=== PATIENT | female | born 1990 | race African-American/Black ===

== ENCOUNTER 2016-05-12 15:27 | Emergency (ER) | payer OTHER ==
[2016-05-12 15:31] VITALS: BP 118/77; PULSE 90; TEMP 97.7; BMI 19.8
[2016-05-12] MEDS ORDERED: KETOROLAC TROMETHAMINE 60 MG/2 ML VIAL IM ONE (16:03)
[2016-05-12] MEDS ORDERED: CYCLOBENZAPRINE HCL 10 MG TABLET (FP) PO ONE (16:03)
[2016-05-12] MEDS ORDERED: KETOROLAC TROMETHAMINE 60 MG/2 ML VIAL ONE ×2 (16:05→16:17)
[2016-05-12] MEDS ORDERED: diazePAM 5 MG TABLET ONE (16:05)
--- NOTE | 2016-05-12 16:17 | PDOC ---
History of Present Illness - General Chief Complaint: Head/Neck problem Stated Complaint: NECK PAIN Time Seen by Provider: 05/12/16 15:43 History Source: Patient - History of Present Illness Associated Symptoms: denies: denies symptoms, fever/chills, nausea/vomiting Past History - Past Medical History Allergies/Adverse Reactions: Allergies Allergy/AdvReac Type Severity Reaction Status Date / Time No Known Allergies Allergy Verified 05/12/16 15:29 Home Medications: Ambulatory Orders Diazepam [Valium] 2 mg PO TID #6 tablet MDD 6mg 05/12/16 Ibuprofen [Motrin -] 600 mg PO QID #28 tablet 05/12/16 Anemia: Yes - Psycho/Social/Smoking Cessation Hx Anxiety: No Suicidal Ideation: No Smoking Status: No Smoking History: Never smoked Number of Cigarettes Smoked Daily: 0 Hx Alcohol Use: No Drug/Substance Use Hx: No Substance Use Type: None Review of Systems - Review of Systems Constitutional: No: Chills, Fever Musculoskeletal: Yes: Neck Pain. No: Back Pain Neurological: No: Headache, Numbness, Weakness *Physical Exam - Vital Signs Last Vital Signs Temp Pulse Resp BP Pulse Ox 97.7 F 90 18 118/77 99 05/12/16 15:29 05/12/16 15:29 05/12/16 15:29 05/12/16 15:29 05/12/16 15:29 - Physical Exam General Appearance: Yes: Appropriately Dressed. No: Apparent Distress HEENT: positive: Normal Voice Neck: positive: Other (tender to midline, pain worse w/ ROM of neck, UE strength intact b/l). negative: Lymphadenopathy (R), Lymphadenopathy (L) Integumentary: positive: Dry, Warm Neurologic: positive: Fully Oriented, Alert, Normal Mood/Affect Medical Decision Making - Medical Decision Making 05/12/16 16:17 25 yo F, no sig hx, p/w neck pain. Pt states she awoke with midline neck pain yesterday am, unable to describe, constant and worse w/ ROM of neck. Taking OTC meds w/ no relief. No BURRIS, dizziness, uri sxs, n/v/f/c. Denies sensory changes or UE weakness See exam Neck pain M/l MSK No red flags at this time -pain control in ED -reassess 05/12/16 16:31 05/12/16 16:54 Pt reports some relief w/ medications. Discharged in stable condition with prescriptions 05/12/16 17:12 *DC/Admit/Observation/Transfer Diagnosis at time of Disposition: Neck strain Qualifiers: Encounter type: initial encounter Qualified Code(s): S16.1XXA - Strain of muscle, fascia and tendon at neck level, initial encounter - Discharge Dispostion Disposition: HOME Condition at time of disposition: Improved - Prescriptions Prescriptions: Ibuprofen [Motrin -] 600 mg PO QID #28 tablet Diazepam [Valium] 2 mg PO TID #6 tablet MDD 6mg - Referrals Referrals: Rd Campos MD [Primary Care Provider] - - Patient Instructions Printed Discharge Instructions: DI for Neck Sprain Additional Instructions: Take medications as directed
[2016-05-12] MEDS ORDERED: CYCLOBENZAPRINE HCL 10 MG TABLET (FP) ONE (16:18)
== END 2016-05-12 17:11 | disposition home or self-care (01) ==
LOC: JERFT 15:27
PROC: 3E0233Z Introduction of Anti-inflammatory into Muscle, Percutaneous Approach (ICD-10-PCS; principal; 2016-05-12)
DX: S16.1XXA Strain of muscle, fascia and tendon at neck level, initial encounter (principal); X50.1XXA Overexertion from prolonged static or awkward postures, initial encounter; X50.9XXA Other and unspecified overexertion or strenuous movements or postures, initial encounter; Y93.89 Activity, other specified; Y92.032 Bedroom in apartment as the place of occurrence of the external cause
CPT/HCPCS: 84703; 96372; 99281-25

== ENCOUNTER 2017-10-12 01:26 | Emergency (ER) | payer OTHER ==
--- NOTE | 2017-10-12 01:44 | PDOC ---
History of Present Illness - General Stated Complaint: PAIN,LT ANKLE Time Seen by Provider: 10/12/17 01:30 History Source: Patient Exam Limitations: No Limitations - History of Present Illness Initial Comments: 10/12/17 01:39 Best Contact: PCP: N/A Pmhx: N/A Pshx: N/A Allergies:N/A FH:0 Social Hx: Cigarettes/ 0 Alcohol/ 0 Drugs/0 LMP:10/06/2017 27-year-old female presents to the emergency department complaining of left lateral ankle discomfort. Patient states while she was sitting, she stood up abruptly causing her to "twitch" her left ankle 5 hours ago. Pain is described as 3/10 dull nonradiating intermittent discomfort which is exacerbated on weight -bear and alleviated at rest. Patient denies knee/foot pain. Patient denies trauma/fall. Patient denies any other complaints. Past History - Past Medical History Allergies/Adverse Reactions: Allergies Allergy/AdvReac Type Severity Reaction Status Date / Time No Known Allergies Allergy Verified 05/12/16 15:29 Home Medications: Ambulatory Orders Diazepam [Valium] 2 mg PO TID #6 tablet MDD 6mg 05/12/16 Ibuprofen [Motrin -] 600 mg PO QID #28 tablet 05/12/16 Anemia: Yes - Suicide/Smoking/Psychosocial Hx Smoking Status: No Smoking History: Never smoked Number of Cigarettes Smoked Daily: 0 Hx Alcohol Use: No Drug/Substance Use Hx: No Substance Use Type: None Review of Systems - Review of Systems Able to Perform ROS?: Yes Comments:: 10/12/17 01:42 CONSTITUTIONAL: Absent: fever, chills, diaphoresis, generalized weakness, malaise, loss of appetite MUSCULOSKELETAL: +Left lat ankle pain Absent: myalgia, arthralgia, joint swelling SKIN: Absent: rash, itching, pallor Is the patient limited [place] proficient: No *Physical Exam - Physical Exam Comments: 10/12/17 01:43 GENERAL: Well developed, well nourished. Awake and alert. No acute distress. MUSCULOSKELETAL Left ankle: No obvious deformity/no swelling or pain to the lateral malleolus. Achilles intact Left foot: No pain to the base of the fifth metatarsal, 2+ pedal pulse, no obvious deformity Left knee: No pain on palpation, full range of motion, negative pain to proximal fibula Normal range of motion at all joints. No bony deformities or tenderness. No CVA tenderness. EXTREMITIES: No cyanosis. No clubbing. No edema. No calf tenderness. SKIN: Warm and dry. Normal capillary refill. No rashes. No jaundice. ED Treatment Course - RADIOLOGY Radiology Studies Ordered: Category Date Time Status ANKLE-LEFT [RAD] Stat Radiology 10/12/17 01:31 Ordered Radiograph Interpretation: 10/12/17 01:44 Xray left ankle neg *DC/Admit/Observation/Transfer Diagnosis at time of Disposition: Ankle sprain Qualifiers: Encounter type: initial encounter Involved ligament of ankle: other ligament Laterality: left Qualified Code(s): S93.492A - Sprain of other ligament of left ankle, initial encounter - Discharge Dispostion Condition at time of disposition: Stable Decision to Admit order: No - Referrals Referrals: Esvin Arias MD [Staff Physician] - - Patient Instructions Printed Discharge Instructions: DI for Ankle Sprain Additional Instructions: Ice; 20 mins on alternating with 20 mins off for 48 hours while awake. Rest Elevate Follow up with your orthopedic surgeon or the one listed on the discharge form. Return to the ER for severe/persistent/worsening symptoms, extremity numbness/ tingling sensation. - Post Discharge Activity
[2017-10-12 02:00] VITALS: BP 130/87; PULSE 85; TEMP 98.1; BMI 22.6
== END 2017-10-12 02:36 | disposition home or self-care (01) ==
LOC: JER 01:26
DX: S93.492A Sprain of other ligament of left ankle, initial encounter (principal); X50.1XXA Overexertion from prolonged static or awkward postures, initial encounter; Y93.89 Activity, other specified; Y92.89 Other specified places as the place of occurrence of the external cause; Y99.8 Other external cause status
CPT/HCPCS: 73610-TC-LT-FY; 99283-25

== ENCOUNTER 2018-07-12 23:02 | Emergency (ER) | payer OTHER ==
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
[2018-07-12 23:42] VITALS: BP 113/76; PULSE 90; TEMP 98.9; BMI 44.3
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
== END 2018-07-13 01:50 | disposition home or self-care (01) ==
LOC: JER 23:02
PROC: BY49ZZZ Ultrasonography of First Trimester, Single Fetus (ICD-10-PCS; principal; 2018-07-12)
DX: O26.891 Other specified pregnancy related conditions, first trimester (principal); R10.9 Unspecified abdominal pain; W50.0XXA Accidental hit or strike by another person, initial encounter; Y93.82 Activity, spectator at an event; Y92.89 Other specified places as the place of occurrence of the external cause; Y99.8 Other external cause status; Z3A.13 13 weeks gestation of pregnancy
CPT/HCPCS: 36415; 76801-TC; 76815-TC; 84702; 86850; 86900; 86901; 99282-25

== ENCOUNTER 2019-01-15 20:40 | Inpatient (IN) | payer OTHER ==
[2019-01-15] MEDS: DEXTROSE 5%-LACTATED RINGERS 1,000 ML IV SCH (21:00)
[2019-01-15 22:26] LABS: BASO % 0.7 % (0-2.0); EOS % 0.4 % (0-4.5); HEMATOCRIT 30.4 % (32.4-45.2); HEMOGLOBIN 9.6 GM/dL (10.7-15.3); LYMPH % 15.2 % (8-40); MCH 23.9 pg (25.7-33.7); MCHC 31.7 g/dl (32.0-36.0); MEAN CELL VOLUME 75.4 fl (80-96); MEAN PLT VOLUME 8.8 fl (7.5-11.1); MONO % 8.9 % (3.8-10.2); NEUT % 74.8 % (42.8-82.8); PLATELET COUNT 165 K/MM3 (134-434); RBC 4.03 M/mm3 (3.60-5.2); RDW 15.4 % (11.6-15.6); WHITE BLOOD COUNT 8.5 K/mm3 (4.0-10.0)
[2019-01-15 22:48] LABS: INR 0.92 (0.83-1.09); PROTHROMBIN TIME (PATIENT) 10.9 SEC (9.7-13.0)
[2019-01-15 22:53] LABS: BLOOD UREA NITROGEN 9.3 mg/dL (7-18); CALCIUM 8.8 mg/dL (8.5-10.1); CREATININE 0.7 mg/dL (0.55-1.3); POTASSIUM 4.2 mmol/L (3.5-5.1)
[2019-01-15 23:00] VITALS: BMI 20.7
[2019-01-16] MEDS ORDERED: BUTORPHANOL TARTRATE 1 MG/ML VIAL ONE ×2 (00:16)
[2019-01-16] MEDS ORDERED: PROMETHAZINE HCL 25 MG/1 ML VIAL ONE (00:17)
[2019-01-16] MEDS ORDERED: AMPICILLIN SODIUM 2 GM VIAL ONE (01:04)
[2019-01-16] MEDS ORDERED: AMPICILLIN - 2 GM in SODIUM CHLORIDE 100 ML IVPB ONE (02:45)
[2019-01-16] MEDS ORDERED: BUTORPHANOL TARTRATE 1 MG/ML VIAL IVPB ONE (02:45)
[2019-01-16] MEDS ORDERED: PROMETHAZINE HCL 25 MG/1 ML VIAL IVPB ONE (02:45)
[2019-01-16] MEDS: AMPICILLIN - 1 GM in SODIUM CHLORIDE 100 ML IVPB SCH ×2 (05:00→09:00)
--- NOTE | 2019-01-16 05:09 | HP ---
Past Medical History - Primary Care Physician PCP:: Nhung Eden - Admission Chief Complaint: Labor History of Present Illness: 28 yo EDc EGA 39 week admitted for induction but was in labor no ROM or bleeding History Source: Patient Limitations to Obtaining History: No Limitations - Past Medical History ...: 1 ...Para: 0 ...LMP: 04/10/18 ... Weeks Gestation by Dates: 40 ...EDC by Dates: 01/15/19 ...EDC by Sono: 01/22/19 - Past Surgical History Past Surgical History: Yes: None Hx Myomectomy: No Hx Transabdominal Cerclage: No - Smoking History Smoking history: Never smoked Have you smoked in the past 12 months: No Aproximately how many cigarettes per day: 0 - Alcohol/Substance Use Hx Alcohol Use: No History of Substance Use: reports: None - Social History History of Recent Travel: No Home Medications - Allergies Allergies/Adverse Reactions: Allergies Allergy/AdvReac Type Severity Reaction Status Date / Time No Known Allergies Allergy Verified 07/12/18 23:11 - Home Medications Home Medications: Ambulatory Orders Prenat 115/Iron Fum/Folic/Dss [ 19 Tablet] 1 each PO DAILY 10/09/18 Ibuprofen [Motrin -] 600 mg PO QID #28 tablet 01/19/19 Review of Systems - Review of Systems Constitutional: reports: No Symptoms Eyes: reports: No Symptoms HENT: reports: No Symptoms Neck: reports: No Symptoms Cardiovascular: reports: No Symptoms Respiratory: reports: No Symptoms Gastrointestinal: reports: No Symptoms Genitourinary: reports: No Symptoms Breasts: reports: No Symptoms Reported Musculoskeletal: reports: No Symptoms Integumentary: reports: No Symptoms Neurological: reports: No Symptoms Endocrine: reports: No Symptoms Hematology/Lymphatic: reports: No Symptoms Psychiatric: reports: No Symptoms Physical Exam - Maternity Vital Signs: Vital Signs Temperature 97.9 F 01/16/19 03:00 Pulse Rate 85 01/16/19 03:00 Respiratory Rate 18 01/16/19 03:00 Blood Pressure 108/57 L 01/16/19 03:00 O2 Sat by Pulse Oximetry (%) Constitutional: Yes: Well Nourished, No Distress Neck: Yes: WNL Breast(s): Yes: WNL - Abdominal Exam/OB Fundal Height: 40 Number of Fetuses: Single Regularity: Regular Category: I Decelerations: None - Vaginal Exam/OB Dilatation (cm): 2 Amniotic Membrane Status: Intact Presentation: Vertex/Position - Physical Exam Psychiatric: Yes: WNL, Alert, Oriented - Labs Lab Results: CBC, BMP 01/15/19 22:15 01/15/19 22:15 Hemorrhage Risk Assessment - Risk Factors Risk Score: 0 Risk Level: Low Risk Problem List - Problems (1) Labor established Problems reviewed: Yes Code(s): [id number] - Assessment/Plan 39 week Labor Cat 1 GBS Plan Admit Stadol Epidural if desires
--- NOTE | 2019-01-16 05:14 | LDN ---
Oxytocin Pre-Use Checklist Date and Time completed: 01/16/19 0514 Physician order on chart: Yes Indication for induction is documented: Yes record on chart: Yes Pelvis is documented by physician to be clinically adequate: Yes Estimated weight within past week (clinical or sono): Less than 4500 grams in a non-diabetic woman Gestational age is documented: Yes Consent signed: Yes Physician with privileges: is aware of the induction, is readily available, is documented in the medical record Status of the cervix is assessed and documented: Yes Presentation is assessed and documented: Yes Assessment completed and includes: A minimum of 30 minutes of monitoring is required prior to start, At least 2 accelerations (15bpm x 15sec) in 30 minutes are present
[2019-01-16] MEDS ORDERED: ELECTROLYTE-148 SOLN 1,000 ML IV SCH (05:15)
[2019-01-16] MEDS ORDERED: OXYTOCIN 30 UNITS in 0.9% NS 30 UNIT/500 ML INFUS.BAG IVPB SCH (05:15)
[2019-01-16] MEDS ORDERED: AMPICILLIN SODIUM 1 GM VIAL ONE (05:18)
--- NOTE | 2019-01-16 05:38 | PN ---
Ante-Partal Exam - Subjective Subjective: Pt sagrario Q3-4 Vital Signs: Vital Signs Temperature 98.0 F 01/16/19 05:00 Pulse Rate 80 01/16/19 05:00 Respiratory Rate 18 01/16/19 05:00 Blood Pressure 117/77 01/16/19 05:00 O2 Sat by Pulse Oximetry (%) Bleeding: No Headache: No Visual changes: No Right upper quadrant pain: No - Contractions Contractions: Yes Regularity: Irregular Intensity: Mild/Mod Monitor Mode: External - Exam during Labor Variability: Moderate Heart Rate Location: [facility] Category: I Monitor Accelerations: Present Monitor Decelerations: None Exam: Vaginal Dilatation (cm): 3 Amniotic Membrane Status: Intact Presentation: Vertex Station: -1 - Intrapartum Hemorrhage Risk Risk Score: 0 Risk Level: Low Risk - Assessment/Plan Assessment/Plan: Labor irregular contracdtions Plan pitocin augmentation
[2019-01-16] MEDS ORDERED: morphine SULFATE/PF 0.5 MG/ML (2cc Syringe - QUVA) ONE (08:22)
[2019-01-16] MEDS ORDERED: CITRIC ACID/SODIUM CITRATE 30 ML UNIT-DOSE CUP PO ONE (08:28)
[2019-01-16] MEDS ORDERED: METHYLERGONOVINE MALEATE 0.2 MG/1 ML AMP IM PRN (08:28)
--- NOTE | 2019-01-16 08:28 | PN ---
Ante-Partal Exam - Subjective Subjective: EFM showing decels with augmentation Vital Signs: Vital Signs Temperature 98.6 F 01/16/19 07:00 Pulse Rate 75 01/16/19 07:00 Respiratory Rate 18 01/16/19 07:00 Blood Pressure 116/77 01/16/19 07:00 O2 Sat by Pulse Oximetry (%) - Exam during Labor Category: II Monitor Decelerations: Variable Exam: Vaginal Dilatation (cm): 2-3 Effacement (%): 90 Amniotic Membrane Status: Intact Presentation: Vertex Station: -1 - Intrapartum Hemorrhage Risk Risk Score: 0 Risk Level: Low Risk - Assessment/Plan Assessment/Plan: intolerace to labor Cat 2 Plan discussed with pt advised CS pt remote from delivery
--- NOTE | 2019-01-16 09:22 | OP ---
Operative Note - Note: Operative Date: 01/16/19 Pre-Operative Diagnosis: intolerance to labor. GBs positive. IUP at 39 week Operation: Low transverse Section Findings: Live Post-Operative Diagnosis: Same as Pre-op Surgeon: Nhung Eden Waiter/Waitress Informal: Xuan Sun Anesthesia: Spinal Estimated Blood Loss (mls): 500 Operative Report Dictated: Yes
[2019-01-16] MEDS: OXYTOCIN 20 UNITS in 0.9% NS 20 UNIT/1,000 ML INFUS.BAG IV SCH (09:30)
--- NOTE | 2019-01-16 09:57 | SURG ---
Surgery Music Education Director Note Music Education Director: Xuan Sun PA-C Date of Service: 01/16/19 Diagnosis: intolerance to labor. GBs positive. IUP at 39 week Procedure: section I was present for the entirety of the operative procedure. For further detail, please refer to operative report. Visit type - Case Type Case Type: Scheduled - Emergency Emergency Visit: No - New patient This patient is new to me today: Yes Date on this admission: 01/16/19
[2019-01-16] MEDS: IBUPROFEN 800 MG/8 ML IJ IVPB PRN (17:35)
[2019-01-17] MEDS: IBUPROFEN 800 MG/8 ML IJ IVPB PRN (01:13)
[2019-01-17] MEDS ORDERED: BISACODYL 10 MG SUPP.RECT RC PRN (08:28)
[2019-01-17] MEDS ORDERED: oxyCODONE HCL 5 MG TABLET PO PRN (08:28)
[2019-01-17 08:38] LABS: BASO % 0.2 % (0-2.0); EOS % 0.9 % (0-4.5); HEMATOCRIT 25.4 % (32.4-45.2); HEMOGLOBIN 8.1 GM/dL (10.7-15.3); LYMPH % 12.8 % (8-40); MCH 24.1 pg (25.7-33.7); MCHC 31.8 g/dl (32.0-36.0); MEAN CELL VOLUME 75.8 fl (80-96); MEAN PLT VOLUME 8.9 fl (7.5-11.1); MONO % 8.5 % (3.8-10.2); NEUT % 77.6 % (42.8-82.8); PLATELET COUNT 167 K/MM3 (134-434); RBC 3.35 M/mm3 (3.60-5.2); RDW 15.4 % (11.6-15.6); WHITE BLOOD COUNT 9.4 K/mm3 (4.0-10.0)
[2019-01-17] MEDS ORDERED: FLU VACCINE QUAD 60 MCG/0.5 ML (MDV 19-20) IM ONE (10:00)
[2019-01-17] MEDS ORDERED: DIPHTH,PERTUSS(ACELL),TET 0.5 ML DISP.SYRIN IM ONE (10:00)
[2019-01-17] MEDS ORDERED: FLU VACC QS2019-20(6MOS UP)/PF 60 MCG/0.5 ML SYRINGE IM ONE (10:00)
[2019-01-17] MEDS: SIMETHICONE 80 MG TAB.CHEW (FP) PO PRN ×2 (10:47→21:19)
[2019-01-17] MEDS: IBUPROFEN 600 MG TABLET (FP) PO PRN ×2 (10:47→21:19)
[2019-01-17] MEDS: PRENATAL VITAMINS W/ FOLIC ACID TABLET (FP) PO SCH (10:47)
[2019-01-17] MEDS: DEXTROSE 5%-LACTATED RINGERS 1,000 ML IV SCH (10:58)
[2019-01-17] MEDS: OXYTOCIN 20 UNITS in 0.9% NS 20 UNIT/1,000 ML INFUS.BAG IV SCH (10:58)
[2019-01-17] MEDS: diphenhydrAMINE HCL 25 MG CAPSULE (FP) PO PRN ×2 (13:17→23:42)
[2019-01-17] MEDS: oxyCODONE HCL 5 MG TABLET PO PRN (21:19)
[2019-01-18] MEDS ORDERED: ACETAMINOPHEN 325 MG TABLET (FP) PO PRN (00:24)
[2019-01-18] MEDS: oxyCODONE HCL 5 MG TABLET PO PRN ×2 (03:19→18:53)
[2019-01-18] MEDS: SIMETHICONE 80 MG TAB.CHEW (FP) PO PRN ×3 (03:19→22:52)
[2019-01-18] MEDS: IBUPROFEN 600 MG TABLET (FP) PO PRN ×3 (03:19→22:53)
[2019-01-18] MEDS: PRENATAL VITAMINS W/ FOLIC ACID TABLET (FP) PO SCH (09:52)
[2019-01-18] MEDS: DEXTROSE 5%-LACTATED RINGERS 1,000 ML IV SCH (19:57)
[2019-01-18] MEDS: OXYTOCIN 20 UNITS in 0.9% NS 20 UNIT/1,000 ML INFUS.BAG IV SCH (19:57)
[2019-01-19 07:46] LABS: BASO % 0.5 % (0-2.0); EOS % 2.8 % (0-4.5); HEMATOCRIT 25.5 % (32.4-45.2); LYMPH % 23.1 % (8-40); MCH 23.9 pg (25.7-33.7); MCHC 31.3 g/dl (32.0-36.0); MEAN CELL VOLUME 76.3 fl (80-96); MEAN PLT VOLUME 8.3 fl (7.5-11.1); NEUT % 65.6 % (42.8-82.8); PLATELET COUNT 222 K/MM3 (134-434); RBC 3.34 M/mm3 (3.60-5.2); RDW 15.6 % (11.6-15.6); WHITE BLOOD COUNT 6.1 K/mm3 (4.0-10.0)
[2019-01-19 08:29] VITALS: BP 108/72; PULSE 70; TEMP 98.1
[2019-01-19] MEDS: PRENATAL VITAMINS W/ FOLIC ACID TABLET (FP) PO SCH (09:19)
--- NOTE | 2019-01-19 11:23 | PN ---
Post Note - Post Date of Delivery: 01/16/19 Vital Signs: Vital Signs - 24 hr 01/18/19 01/19/19 22:00 08:28 Temperature 98.2 F 98.1 F Pulse Rate 81 70 Respiratory 18 20 Rate Blood Pressure 116/69 108/72 Labs: Laboratory Results - last 24 hr 01/19/19 07:33 WBC 6.1 RBC 3.34 L Hgb 8.0 L Hct 25.5 L MCV 76.3 L MCH 23.9 L MCHC 31.3 L RDW 15.6 Plt Count 222 D MPV 8.3 Absolute Neuts (auto) 4.0 Neutrophils % 65.6 Lymphocytes % 23.1 D Monocytes % 8.0 Eosinophils % 2.8 D Basophils % 0.5 Nucleated RBC % 0 - Subjective Subjective: No Complaints - Objective Afebrile: Yes Breast: Not engorged Abdomen: Soft, Non-tender Uterus: Fundus firm Vagina: Scant lochia Extremities: Non-tender - Assessment/Plan (1) Labor established Assessment: Other (POD1) Plan: Routine Care
--- NOTE | 2019-01-19 11:24 | DS ---
Physical Exam-PRODUCTION WEIGHER Vital Signs: Vital Signs Temperature 98.1 F 01/19/19 08:28 Pulse Rate 70 01/19/19 08:28 Respiratory Rate 20 01/19/19 08:28 Blood Pressure 108/72 01/19/19 08:28 O2 Sat by Pulse Oximetry (%) 99 01/16/19 11:25 Constitutional: Yes: Well Nourished, No Distress Neck: Yes: WNL Cardiovascular: Yes: WNL Gastrointestinal: Yes: WNL, Soft ....Post : Yes: Uterus firm, Uterus non-tender Extremities: Yes: WNL Edema: No Integumentary: Yes: WNL Wound/Incision: Yes: Clean/Dry, Well Approximated Neurological: Yes: WNL, Alert, Oriented Labs: CBC, BMP 01/19/19 07:33 01/15/19 22:15 Delivery - Delivery Section: Low Flap Transverse Type of Anesthesia: Spinal Episiotomy/Laceration: None EBL (cc): 500 Delivery, Single - Stages of Labor Date 1st Stage Initiatied: 01/15/19 Time 1st Stage Initiated: 19:00 Date of Delivery: 01/16/19 Time of Delivery: 08:53 Time Placenta Delivered: 08:54 Placenta: Yes: Spontaneous - Condition of Engineering Technician/Staffing Analyst Present: Yes Name: Patrick Falcon Gender: Male Weight: 7 lb 13 oz Position: OA Total Hours ROM (Hrs/Mins): 0/2 - 1 Minute Total Score: 9 5 Minutes Total Score: 9 - [place] Feeding Plan Initial Plan: Elected not to breastfeed exclusively throughout hospitalization Discharge Summary Problems reviewed: Yes Reason For Visit: INDUCTION OF LABOR Current Active Problems Labor established (Acute) Condition: Good - Instructions Diet, Activity, Other Instructions: Physical activity Resume your normal everyday activity as tolerated no heavy lifting or exercise until seen by your surgeon. You may walk unlimited lamont of and climb stairs. You may resume driving the car when you feel safe and comfortable behind the wheel. No sexual activity as instructed. Wound care If you have a bandage, leave it on, and keep dry for 48-72 hours. After that time discard the outer bandage. If they are tapes on the skin under the out of bandage leave them in place. They will peel off in the next 7 to 10 days. Do Not Peel them off. You may shower the day after surgery. If there are tapes present on the skin, you may shower over them. Diet There are no dietary restrictions. Eat healthy, high-fiber foods. Drink 6 to 8 glasses of liquid each day. This will assist in keeping your bowels are regular. Pain management You may take Tylenol or acetaminophen or Ibuprofen (for example, Motrin, Advil etc.) from my pain prescription medication is ordered should be taken as prescribed for moderate to severe pain. Call MD for any of the following: Severe pain not relieved by medication Fever of 101 or higher Excessive bleeding or drainage on dressing Inability to urinate Referrals: Nhung Eden MD [Staff Physician] - Disposition: HOME - Home Medications Comprehensive Discharge Medication List: Ambulatory Orders Prenat 115/Iron Fum/Folic/Dss [ 19 Tablet] 1 each PO DAILY 10/09/18
--- NOTE | 2019-01-19 13:52 | OP ---
DATE OF OPERATION: 01/16/2019 PREOPERATIVE DIAGNOSIS: intolerance to labor, group B streptococcus positive, and intrauterine at 39 weeks. OPERATION: Primary low transverse section. SURGEON: Nhung Eden MD WELDER PRODUCTION LINE ARC: ALICIA Mai. unavailable. ANESTHESIA: Spinal. ESTIMATED BLOOD LOSS: 500 mL. PROCEDURE: Patient was taken to the operating room, placed in supine position, prepped and draped in the usual sterile fashion. Pfannenstiel skin incision was made with a scalpel after time-out had been called in accordance with hospital regulation. Cautery was then used to go through layers of abdominal wall to the level of the fascia. Fascia was cut in the midline. Cautery was then used to open the fascia in smiling fashion. Kochers were then used to bluntly, sharply dissect the rectus muscles off the fascia and muscles split in the midline. Peritoneal cavity was then entered and carried upward and downward. Bladder retractor was then placed. Vesicouterine reflection was then entered, and bladder was bluntly dissected out of the operative field. A scalpel was then used to make a low transverse uterine incision. Incision was carried upward using bandage scissors. A live male was delivered in OT position. Nose and mouth suction performed. Shoulders were delivered without difficulty. Cord was clamped and cut. Cord blood obtained. Cord pH obtained. Infant was handed to the light oil operator. Uterus was then exteriorized and cleaned with clean laparotomy pads. Uterine incision was then closed using 0 Biosyn suture, 1st layer continuous and locking, 2nd layer imbricating the 1st layer. Hemostasis was achieved. Uterus interiorized. Tubes and ovaries noted to be normal. Abdominal sweep done. Peritoneal cavity was closed using 0 chromic suture. Muscle was approximated in the midline using 0 Biosyn suture. Fascia was then closed using 0 Vicryl suture in 2 parts continuous. Skin was then closed using 3-0 Vicryl in subcuticular fashion. Wound was washed and dressed. Patient tolerated the procedure well. Estimated blood loss was 500 mL. NHUNG EDEN M.D. ASHLEY/[id number]
--- NOTE | 2019-01-23 17:54 | PATH ---
Surgical Pathology Report Patient Name: AIDEN YOUSSEF Med. Rec. #: [id number] /Age/Gender: 1990 (Age: 28) / F Account: [id number] Location: [facility] OBS/DIFFERENTIAL SPECIALIST Taken: 01/16/2019 Received: 01/19/2019 Reported: 01/23/2019 Physicians: Nhung Eden M.D. Specimen(s) Received PLACENTA Clinical History , 39.1 weeks, nonreassuring heart rate Final Diagnosis PLACENTA, SECTION: 381 G THIRD TRIMESTER PLACENTA WITH TRIVASCULAR UMBILICAL CORD AND UNREMARKABLE PLACENTAL MEMBRANES. Electronically Signed Yuki Damico M.D. Gross Description The specimen is received fresh labeled placenta and is a 381 gram, 19.0 x 15.0 x 1.2 cm. placenta with attached membranes and umbilical cord. The attached membranes are hernández, translucent with focal opacities and insert marginally. The umbilical cord measures 9 cm. in length and averages 1.2 cm. in diameter. The cord inserts eccentrically, 6 cm. to the nearest margin. No true knots or strictures are identified. Cut surface of the umbilical cord reveals 3 vessels. The surface is wallace-blue with minimal fibrin deposition and appropriate caliber vessels. The maternal surface is red-brown with focal defects. Sectioning reveals red-brown, spongy parenchyma. No lesions are identified. Doctor'S Assistant sections are submitted in three cassettes as follows: 1- membrane rolls and umbilical cord; 2-3- full thickness sections of placenta. 01/21/2019 [place]01/21/2019
== END 2019-01-19 14:55 | disposition home or self-care (01) | DRG 540 ==
LOC: JLDR 20:40 → J3W 01-16 13:00
PROVIDERS: ADMIT Obstetrics & Gynecology; ATTEND Obstetrics & Gynecology
PROC: 10D00Z1 Extraction of Products of Conception, Low, Open Approach (ICD-10-PCS; principal; 2019-01-16)
DX: O36.8330 Maternal care for abnormalities of the fetal heart rate or rhythm, third trimester, not applicable or unspecified (principal); Z3A.39 39 weeks gestation of pregnancy; Z22.330 Carrier of Group B streptococcus; Z37.0 Single live birth
CPT/HCPCS: 36415; 36600; 80048; 82803; 85025; 85610; 85730; 86593; 86850; 86900; 86901; 87389; 88307-TC; 90686; 90715

== ENCOUNTER 2021-04-19 10:08 | Emergency (ER) | payer OTHER ==
[2021-04-19 10:22] VITALS: BP 120/71; PULSE 82; TEMP 97.9; BMI 21.9
[2021-04-19] MEDS ORDERED: ONDANSETRON 4 MG TABLET PO ONE ×2 (10:43→11:12)
== END 2021-04-19 11:29 | disposition home or self-care (01) ==
LOC: JERFT 10:08
DX: R11.0 Nausea (principal); G44.89 Other headache syndrome
CPT/HCPCS: 84703; 99283-25

== ENCOUNTER 2021-05-04 17:58 | Emergency (ER) | payer OTHER ==
[2021-05-04 18:27] VITALS: BP 135/89; PULSE 73; TEMP 98.4; BMI 21.9
[2021-05-04] MEDS ORDERED: METOCLOPRAMIDE HCL INJECTION 10 MG/2 ML VIAL IVPUSH ONE (19:19)
[2021-05-04] MEDS ORDERED: SODIUM CHLORIDE 0.9% 500 ML INFUS.BAG IV ONE (19:19)
[2021-05-04] MEDS ORDERED: KETOROLAC TROMETHAMINE 30 MG/1 ML VIAL IVPB ONE (19:19)
[2021-05-04] MEDS ORDERED: METOCLOPRAMIDE HCL INJECTION 10 MG/2 ML VIAL ONE (20:50)
[2021-05-04] MEDS ORDERED: KETOROLAC TROMETHAMINE 30 MG/1 ML VIAL ONE (20:50)
== END 2021-05-04 21:46 | disposition home or self-care (01) ==
LOC: JER 17:58
PROC: 3E033GC Introduction of Other Therapeutic Substance into Peripheral Vein, Percutaneous Approach (ICD-10-PCS; principal; 2021-05-04)
DX: R51.9 Headache, unspecified (principal)
CPT/HCPCS: 99284-25

== ENCOUNTER 2023-10-16 12:58 | Emergency (ER) | payer OTHER ==
[2023-10-16 13:19] VITALS: BP 113/83; PULSE 78; RESP 16; TEMP 98.1; BMI 20.7
[2023-10-16] MEDS ORDERED: KETOROLAC TROMETHAMINE 30 MG/1 ML VIAL ONE (14:32)
[2023-10-16] MEDS ORDERED: METOCLOPRAMIDE HCL INJECTION 10 MG/2 ML VIAL ONE (14:33)
[2023-10-16 14:36] LABS: BASO % 0.6 % (0-2.0); EOS % 1.1 % (0-4.5); HEMATOCRIT 37.5 % (32.4-45.2); HEMOGLOBIN 12.1 GM/dL (10.7-15.3); LYMPH % 31.2 % (8-40); MCH 24.9 pg (25.7-33.7); MCHC 32.1 g/dl (32.0-36.0); MEAN CELL VOLUME 77.5 fl (80-96); MEAN PLT VOLUME 8.8 fl (7.5-11.1); MONO % 4.7 % (3.8-10.2); NEUT % 62.4 % (42.8-82.8); PLATELET COUNT 226 10^3/uL (134-434); RBC 4.84 M/mm3 (3.60-5.2); RDW 16.4 % (11.6-15.6); WHITE BLOOD COUNT 7.1 K/mm3 (4.0-10.0)
[2023-10-16] MEDS: KETOROLAC TROMETHAMINE 30 MG/1 ML VIAL IVPUSH ONE (14:38)
[2023-10-16] MEDS: SODIUM CHLORIDE 0.9% 500 ML INFUS.BAG IV ONE (14:44)
[2023-10-16] MEDS: METOCLOPRAMIDE HCL INJECTION 10 MG/2 ML VIAL IVPUSH ONE (14:45)
[2023-10-16 15:00] LABS: POTASSIUM 3.9 mmol/L (3.5-5.1)
[2023-10-16 15:02] LABS: CALCIUM 9.5 mg/dL (8.5-10.1)
[2023-10-16 15:03] LABS: ALBUMIN 4.2 g/dl (3.4-5.0); BLOOD UREA NITROGEN 15.3 mg/dL (7-18)
[2023-10-16 15:06] LABS: CREATININE 0.8 mg/dL (0.55-1.3)
[2023-10-16 15:07] LABS: TOT PROT 8.2 g/dl (6.4-8.2)
[2023-10-16 15:08] LABS: BILIRUBIN,TOTAL 0.5 mg/dL (0.2-1)
== END 2023-10-16 17:07 | disposition home or self-care (01) ==
LOC: JERFT 12:58 → JER 12:58 → JERFT 17:07
PROC: 3E033GC Introduction of Other Therapeutic Substance into Peripheral Vein, Percutaneous Approach (ICD-10-PCS; principal; 2023-10-16)
PROC: 3E0333Z Introduction of Anti-inflammatory into Peripheral Vein, Percutaneous Approach (ICD-10-PCS; 2023-10-16)
PROC: 3E033GC Introduction of Other Therapeutic Substance into Peripheral Vein, Percutaneous Approach (ICD-10-PCS; 2023-10-16)
DX: R51.9 Headache, unspecified (principal); R11.0 Nausea; H53.149 Visual discomfort, unspecified; R42 Dizziness and giddiness
CPT/HCPCS: 36415; 70450-TC; 80053; 84703; 85025; 99284-25